=== PATIENT | female | born 1980 | race Caucasian/White ===

== ENCOUNTER 2019-03-11 17:45 | Inpatient (IN) ==
[2019-03-11 18:29] LABS: INR 0.94; PROTIME 13.4 Seconds (11.0-16.0)
[2019-03-11 18:30] LABS: BASO# 0.05 X1000 (0.0-0.2); BASO% 0.2 % (0.0-0.8); EOS# 0.02 X1000 (0.0-0.7); EOS% 0.1 % (0.0-10.0); HEMATOCRIT 40.9 % (37.0-47.0); HEMOGLOBIN 14.6 g/dL (12.0-16.0); IMM GRAN# 0.13 X1000 (0.0-0.04); IMM GRAN% 0.4 % (0.0-0.5); LYMPH# 1.02 X1000 (1.2-3.4); LYMPH% 3.4 % (20.5-51.1); MCH 30.8 PG (27-31); MCHC 35.7 g/dL (33-37); MCV 86.3 FL (81-99); MONO# 2.15 X1000 (0.11-0.59); MONO% 7.2 % (1.7-9.3); MPV 9.9 FL (7.4-10.4); NEUT# 26.59 X1000 (1.4-6.5); NEUT% 88.7 % (42.2-75.2); PLT 285 X1000 (130-400); PTT 29.6 Seconds (22.3-41.8); RBC 4.74 XMIL (4.2-5.4); RDW 12.6 % (11.5-14.5); WBC 29.96 X1000 (4.8-10.8)
[2019-03-11 18:40] LABS: AGAP 18; ALB/GLOB RATIO 1.5; ALBUMIN 4.2 g/dL (3.5-5.0); ALKALINE PHOSPHATASE 119 U/L (32-104); BUN 8 mg/dL (8-22); CALCIUM 9.3 mg/dL (8.8-10.2); CHLORIDE 102 mmol/L (98-107); CK PROFILE 37 U/L (24-173); COSMO 272; CREATININE 0.8 mg/dL (0.5-0.9); ESTIMATED GFR > 60; GLUCOSE 137 mg/dL (70-104); GOT 18 U/L (10-30); GPT 14 U/L (10-36); POTASSIUM 3.9 mmol/L (3.5-5.1); SODIUM 136 mmol/L (136-145); TCO2 16 mmol/L (25-35); TOTAL BILIRUBIN 0.39 mg/dL (0.20-1.00)
--- NOTE | 2019-03-11 18:51 | Diag Imaging Result Doc PS360 ---
EXAM: CHEST-1 VIEW HISTORY: POSSIBLE SEPSIS TECHNIQUE: Chest single view COMPARISON: 07/26/2013 FINDINGS: The lungs are well expanded. The heart is not enlarged. The vessels are not distended. There are no infiltrates. No effusion identified. IMPRESSION: No pneumonia Electronically signed by Pop Kinsey 03/11/2019 6:48 PM
[2019-03-11] MEDS ORDERED: ROCEPHIN 1 GM in NS 50 ML IV ONE (19:04)
[2019-03-11] MEDS ORDERED: NS 1,000 ML IV ONE (19:04)
[2019-03-11] MEDS ORDERED: MORPHINE IV ONE (19:12)
[2019-03-11] MEDS ORDERED: ZOFRAN IV ONE (19:12)
[2019-03-11] MEDS ORDERED: TYLENOL PO ONE (19:59)
[2019-03-11 20:17] LABS: URINE SOURCE CLEAN CATCH
[2019-03-11 20:38] LABS: BILIRUBIN URINE NEGATIVE (NEGATIVE); BLOOD URINE SMALL (NEGATIVE); COLOR YELLOW; GLUCOSE URINE NEGATIVE (NEGATIVE); KETONE URINE NEGATIVE (NEGATIVE); LEUKOCYTES URINE MODERATE (NEGATIVE); NITRITE URINE NEGATIVE (NEGATIVE); PH URINE 8.5; PROTEIN URINE 50 mg/dL (NEGATIVE); SP GRAVITY URINE 1.016; TURBIDITY URINE CLEAR (CLEAR); UROBILINOGEN URINE NORMAL (NORMAL)
[2019-03-11 20:39] LABS: UR EPITHELIAL CELLS <10 /HPF (<10); URINE BACTERIA NEGATIVE /HPF; URINE RBC 20-40 /HPF (<10); URINE WBC TNTC /HPF (<10)
[2019-03-11 20:45] LABS: URINE CASTS NONE SEEN; URINE CRYSTALS NONE SEEN; URINE SMALL ROUND CELLS RENAL PRESENT; URINE YEAST NONE SEEN
--- NOTE | 2019-03-11 21:10 | Diag Imaging Result Doc PS360 ---
EXAM: CT ABD/PELVIS W/IV CONT ONLY HISTORY: pyelonephritis, nephroliathiasis TECHNIQUE: Emergency CT of the abdomen and pelvis with intravenous contrast COMPARISON: 08/11/2018 FINDINGS: The gallbladder is distended. No calcified stones or adjacent inflammation. The common bile duct measures 8 mm. Normal pancreas. Likely mild fatty infiltration of the liver. Normal spleen and adrenal glands. Heterogeneous enhancement of the right kidney. No hydronephrosis. Normal aorta. Normal appendix. No abscess. There are scattered colonic diverticula. No bowel obstruction. Urinary bladder is moderately distended and is normal. Uterus has been removed. IMPRESSION: 1.Right-sided pyelonephritis 2.Distended gallbladder, but no stones or adjacent inflammation 3.Mild fatty infiltration of liver 4.Colonic diverticulosis 5.Hysterectomy This exam was performed using automated exposure control, adjustment of mA or kV according to patient size, and/or use of iterative reconstruction technique. Electronically signed by Pop Kinsey 03/11/2019 9:08 PM
--- NOTE | 2019-03-11 21:27 | PROVIDER DOCUMENTATION ---
This chart was entered by Tianna Harrison Scribe, acting as scribe for Cinthya Neely MD. HPI-Abdominal Pain/GI Problem - General Chief Complaint: Possible Sepsis-D Stated Complaint: BODYACHES Time Seen by Provider: 03/11/19 19:04 Source: patient Allergies/Adverse Reactions: Patient Allergies Allergy/AdvReac Type Severity Reaction Status Date / Time ketorolac [From Toradol] Allergy Unknown Verified 08/11/18 13:14 tramadol Allergy Unknown Verified 08/11/18 13:14 Home Medications: Home Medication List Medication Instructions Recorded Confirmed Last Taken Type NK [No Home Medications] 06/25/18 08/11/18 Unknown History - History of Present Illness-ABD Nature of Presenting Problems: 38 y/o female presents to ED with suprapubic pain, weakness, N/V, and dysuria onset 4 days ago and worsening. Pt is alert and oriented. Abdominal Pain Onset Location: reports: suprapubic Pain Radiation: reports: no radiation Quality of Pain: reports: aching Severity in ED: reports: moderate Onset/Duration: reports: 4 days ago Timing: reports: still present, getting worse Activities at Onset: reports: none Exposure to sick contacts?: No Modifying Factors: worse with: palpation Associated Symptoms: reports: nausea, vomiting, weakness, other (dysuria) Last BM: unsure Dark Stools Present?: reports: none noticed Rectal Bleeding: reports: none Rectal Pain: reports: none Similar Symptoms Previously?: No Recently seen or treated by another doctor?: No Review of Systems - Adult - REVIEW OF SYSTEMS - ADULT Constitutional: denies: chills, fever Eyes: reports: no symptoms reported Ears, Nose, Mouth & Throat: reports: no symptoms reported Cardiovascular: denies: chest pain, palpitations Respiratory: denies: cough, shortness of breath Gastrointestinal: reports: abdominal pain, nausea, vomiting. denies: diarrhea Genitourinary: reports: dysuria. denies: incontinence Musculoskeletal: denies: back pain, joint pain Integumentary: reports: no symptoms reported Neurological: reports: other (weakness). denies: dizziness/vertigo, seizure Psychiatric: reports: no symptoms reported Endocrine: reports: no symptoms reported Hematologic/Lymphatic: reports: no symptoms reported Allergic/Immunologic: reports: no symptoms reported All Other Systems: Reviewed and Negative Past History - Adult - PAST MEDICAL HISTORY-ADULT Review of Records: reports: Old Records Reviewed, Nursing Assessment Review, Medications Reviewed Major Childhood Illnesses: reports: denies history Cardiovascular: reports: denies history Respiratory: reports: denies history Gastrointestinal: reports: denies history Genitourinary: reports: denies history, kidney stones Musculoskeletal: reports: denies history Neurological: reports: denies history Psychiatric: reports: denies history Endocrine/Immune: reports: denies history - PRIOR SURGERIES/PROCEDURES Surgical/Procedure History: reports: reviewed, not pertinent, hysterectomy, orthopedic (extremity) (L arm, L foot) - IMMUNIZATION STATUS Childhood Immunizations: See Nurse Assessment Flu Vaccine: See Nurse Assessment - FAMILY HISTORY Family History: reviewed, not pertinent - SOCIAL HISTORY Smoking: greater than 1 pack/day Provider spent 3-5 mins advising pt. on dangers of tobacco.: Discussed manners to quit use, and f/u contacts for add'l counseling. Substance Use: none/never Alcohol Use Frequency: never Living Situation: family Physical Exam-General - PHYSICAL EXAM-ADULT Initial Vital Signs Reviewed: Yes - CONSTITUTIONAL General Appearance: appears well, alert, no apparent distress - EYES Eyes: PERRL/EOMI, pink conjunctivae - HEAD, EARS, NOSE, MOUTH & THROAT HENMT: normocephalic/atraumatic, moist mucous membranes, normal ENT inspection - NECK Neck: non-tender, full range of motion - RESPIRATORY Respiratory: chest non-tender, lungs clear, normal breath sounds - CARDIOVASCULAR Cardiovascular: normal peripheral pulses, regular rate, rhythm - GASTROINTESTINAL (ABDOMEN) Abdominal Exam: normal bowel sounds, soft, tenderness (diffuse; worse in epigastric region) - MUSCULOSKELETAL Back Exam: normal inspection, no vertebral tenderness, CVA tenderness (bilateral) Extremity: normal range of motion, non-tender, normal gait - SKIN Integumentary: normal color, warm/dry - NEUROLOGIC Neurologic: grossly normal - PSYCHIATRIC Psych/Mental Status: normal mood/affect, normal thought content, normal thought process Progress - PLAN OF CARE/RESULTS Progress/Plan/Lab Results: Vital Signs - 8 hr 03/11/19 17:51 03/11/19 18:24 03/11/19 18:25 Temperature 99.0 F Pulse Rate 147 H 116 H Respiratory Rate 22 44 H Blood Pressure 102/69 104/70 O2 Sat by Pulse Oximetry 97 96 95 03/11/19 18:30 03/11/19 18:33 03/11/19 18:40 Temperature Pulse Rate 120 H 120 H 119 H Respiratory Rate 30 H 28 H 21 Blood Pressure 116/68 O2 Sat by Pulse Oximetry 90 L 93 L 93 L 03/11/19 18:50 03/11/19 19:00 03/11/19 19:02 Temperature Pulse Rate 125 H 117 H 118 H Respiratory Rate 31 H 25 H 24 Blood Pressure 113/65 O2 Sat by Pulse Oximetry 95 93 L 94 L 03/11/19 19:10 03/11/19 19:50 03/11/19 19:51 Temperature Pulse Rate 130 H 131 H 130 H Respiratory Rate 22 18 30 H Blood Pressure 111/67 O2 Sat by Pulse Oximetry 95 95 95 03/11/19 20:00 03/11/19 20:02 Temperature Pulse Rate 118 H 113 H Respiratory Rate 27 H 24 Blood Pressure 109/63 O2 Sat by Pulse Oximetry 93 L 94 L Laboratory Results - last 24 hr 03/11/19 03/11/19 03/11/19 18:04 18:04 18:04 WBC 29.96 H RBC 4.74 Hgb 14.6 Hct 40.9 MCV 86.3 MCH 30.8 MCHC 35.7 RDW Std Deviation 12.6 Plt Count 285 MPV 9.9 Immature Gran % (Auto) 0.4 Neut % (Auto) 88.7 H Lymph % (Auto) 3.4 L Pine % (Auto) 7.2 Eos % (Auto) 0.1 Baso % (Auto) 0.2 Immature Gran # (Auto) 0.13 H Neut # (Auto) 26.59 H Lymph # (Auto) 1.02 L Pine # (Auto) 2.15 H Eos # (Auto) 0.02 Baso # (Auto) 0.05 PT 13.4 INR 0.94 PTT (Actin FS) 29.6 Sodium 136 Potassium 3.9 Chloride 102 Carbon Dioxide 16 L Anion Gap 18 BUN 8 Creatinine 0.8 Estimated GFR/1.73 m2 > 60 BUN/Creatinine Ratio 10 Glucose 137 H Calculated Osmolality 272 Calcium 9.3 Total Bilirubin 0.39 AST 18 ALT 14 Alkaline Phosphatase 119 H Creatine Kinase 37 Troponin T Total Protein 7.0 Albumin 4.2 Globulin 2.8 Albumin/Globulin Ratio 1.5 Plasma Lactate Urine Source Urine Color Urine Turbidity Urine pH Ur Specific [place] Urine Protein Ur Glucose (Stick) Ur Ketones (Stick) Urine Blood Urine Nitrite Urine Bilirubin Urobilinogen Dipstick Urine Leukocytes Urine WBC (Auto) Urine RBC (Auto) U Epithel Cells (Auto) Urine Bacteria (Auto) Urine Crystals Small Round Cells Urine Casts Urine Yeast-like Cells 03/11/19 03/11/19 03/11/19 18:04 18:04 19:50 WBC RBC Hgb Hct MCV MCH MCHC RDW Std Deviation Plt Count MPV Immature Gran % (Auto) Neut % (Auto) Lymph % (Auto) Pine % (Auto) Eos % (Auto) Baso % (Auto) Immature Gran # (Auto) Neut # (Auto) Lymph # (Auto) Pine # (Auto) Eos # (Auto) Baso # (Auto) PT INR PTT (Actin FS) Sodium Potassium Chloride Carbon Dioxide Anion Gap BUN Creatinine Estimated GFR/1.73 m2 BUN/Creatinine Ratio Glucose Calculated Osmolality Calcium Total Bilirubin AST ALT Alkaline Phosphatase Creatine Kinase Troponin T < 0.010 Total Protein Albumin Globulin Albumin/Globulin Ratio Plasma Lactate 1.8 Urine Source CLEAN CATCH Urine Color YELLOW Urine Turbidity CLEAR Urine pH 8.5 Ur Specific [place] 1.016 Urine Protein 50 A Ur Glucose (Stick) NEGATIVE Ur Ketones (Stick) NEGATIVE Urine Blood SMALL A Urine Nitrite NEGATIVE Urine Bilirubin NEGATIVE Urobilinogen Dipstick NORMAL Urine Leukocytes MODERATE A Urine WBC (Auto) TNTC A Urine RBC (Auto) 20-40 A U Epithel Cells (Auto) <10 Urine Bacteria (Auto) NEGATIVE Urine Crystals NONE SEEN Small Round Cells RENAL PRESENT Urine Casts NONE SEEN Urine Yeast-like Cells NONE SEEN Orders Category Date Time Status Cardiac Monitoring DIRECTED Care 03/11/19 18:06 Active IV Insertion ORDERED Care 03/11/19 18:06 Completed Notify MD of + Sepsis Screen NOW Care 03/11/19 18:06 Active Notify Physician As Ordered Care 03/11/19 18:06 Active CHEST-1 VIEW [RAD] Stat Exams 03/11/19 18:[address] ABD/PELVIS W/IV CONT ONLY [CT] Stat Exams 03/11/19 20:34 Taken BLOOD CULTURE [BLDCUL] Stat Lab 03/11/19 18:04 Results CBC WITH DIFF [HEME] Stat Lab 03/11/19 18:04 Completed CK PROFILE [SP CHEM] Stat Lab 03/11/19 18:04 Completed COMPREHENSIVE METABOLIC PANEL [CHEM] Stat Lab 03/11/19 18:04 Completed LACTATE, PLASMA [CHEM] Lab 03/11/19 18:04 Completed LACTATE, PLASMA [CHEM] Lab 03/11/19 18:55 Ordered LACTATE, PLASMA [CHEM] Lab 03/12/19 00:15 Uncollected PROTIME WITH INR [COAG] Stat Lab 03/11/19 18:04 Completed PTT [COAG] Stat Lab 03/11/19 18:04 Completed TROPONIN T Stat Lab 03/11/19 18:04 Completed URINALYSIS W/POSS RFLX CULT [URINALYSIS] Stat Lab 03/11/19 19:50 Completed URINE MANUAL MICROSCOPIC [URINALYSIS] Stat Lab 03/11/19 19:50 Completed 0.9% Sodium Chloride Inj [Ns] 1,000 ml Med 03/11/19 19:04 Discontinued IV 999 mls/hr Acetaminophen [Tylenol] Med 03/11/19 19:59 Discontinued 500 mg PO NOW ONE CefTRIAXONE [Rocephin] 1 gm Med 03/11/19 19:04 Discontinued 0.9% Sodium Chloride Inj [Ns] 50 ml IV NOW Morphine Med 03/11/19 19:12 Discontinued 4 mg IV NOW ONE Ondansetron [Zofran] Med 03/11/19 19:12 Discontinued 4 mg IV NOW ONE Oxygen Device Stat Oth 03/11/19 18:06 Active Result Diagrams: 03/11/19 18:04 03/11/19 18:04 - EKG 1 Time of EKG reading by physician:: 18:18 EKG Read and Signed by:: Cinthya Neely EKG Interpretation (*Must complete 3 of following elements*): Abnormal Rate: 118 Rhythm: Sinus tach [employer]: normal QRS: other (possible L atrial enlargement) NC Interval: normal ST Wave: non-specific ST changes - XRAY 1 XRAY Study: Chest Impression: Normal (FINDINGS: The lungs are well expanded. The heart is not enlarged. The vessels are not distended. There are no infiltrates. No effusion identified. IMPRESSION: No pneumonia Electronically signed by Pop Kinsey 03/11/2019 6:48 PM) - CT/MRI 1 CT Study: Abdomen, Pelvis Impression: Abnormal (FINDINGS: The gallbladder is distended. No calcified stones or adjacent inflammation. The common bile duct measures 8 mm. Normal pancreas. Likely mild fatty infiltration of the liver. Normal spleen and adrenal glands. Heterogeneous enhancement of the right kidney. No hydronephrosis. Normal aorta. Normal appendix. No abscess. There are scattered colonic diverticula. No bowel obstruction. Urinary bladder is moderately distended and is normal. Uterus has been removed. IMPRESSION: 1.Right-sided pyelonephritis 2.Distended gallbladder, but no stones or adjacent inflammation 3.Mild fatty infiltration of liver 4.Colonic diverticulosis 5.Hysterectomy This exam was p erformed using automated exposure control, adjustment of mA or kV according to patient size, and/or use of iterative reconstruction technique. Electronically signed by Pop Kinsey 03/11/2019 9:08 PM) - CONSULTS/PCP/HOSPITALIST Notification #1 *Consult/PCP/Hospitalist*: Dr. Olmedo Time Discussed: 21:26 (sepsis, right pyelo) Consult Disposition: Admit Departure - Departure Date of Disposition Decision: 03/11/19 Time of Disposition Decision: 21:27 DIAGNOSIS: Sepsis, Pyelonephritis of right kidney Disposition: ADMITTED INPATIENT 09 Certified Medical Emergency: Emergent Condition: Stable Referrals and Follow-Ups: None,PCP [Primary Care Provider] - Discharge Education: Steps to Quit Smoking, [id number] - Critical Care Note This patient required my direct & personal management of CC.: No Attestation - Physician/ VIVIANA Attestation Patient care was provided by Advanced Practice Provider:: No The physician spent face to face time with patient:: Yes Advanced Practice Provider documentation review:: Supervising physician onsite and consulted in the evaluation and care of this patient. The physician did have a face to face encounter with the patient. This chart was documented by the indicated scribe, (Tianna Harrison Scribe) and accurately reflects the services I performed and decisions made by me, Cinthay Neely MD, as attested by the provider's signature.
[2019-03-11] MEDS ORDERED: NS 900 ML IV ONE (22:01)
[2019-03-11] MEDS: MAXIPIME 1 GM in NS 50 ML IV SCH (22:02)
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
[2019-03-12] MEDS: NS 1,000 ML IV SCH ×2 (02:36→12:34)
[2019-03-12] MEDS: TYLENOL PO PRN ×3 (02:36→19:33)
[2019-03-12 06:45] LABS: BASO# 0.03 X1000 (0.0-0.2); BASO% 0.1 % (0.0-0.8); HEMOGLOBIN 12.9 g/dL (12.0-16.0); IMM GRAN% 0.4 % (0.0-0.5); LYMPH# 1.24 X1000 (1.2-3.4); LYMPH% 4.4 % (20.5-51.1); MCH 30.2 PG (27-31); MCHC 33.9 g/dL (33-37); MONO# 2.64 X1000 (0.11-0.59); MONO% 9.4 % (1.7-9.3); MPV 10.3 FL (7.4-10.4); NEUT% 85.7 % (42.2-75.2); PLT 241 X1000 (130-400); RBC 4.27 XMIL (4.2-5.4); RDW 12.9 % (11.5-14.5); WBC 28.21 X1000 (4.8-10.8)
[2019-03-12 07:02] LABS: LYMPHS 5 % (21-51); MONO 6 % (1-9); SEGS 89 % (42-75)
[2019-03-12 07:16] LABS: AGAP 12; BUN 8 mg/dL (8-22); CALCIUM 8.4 mg/dL (8.8-10.2); CHLORIDE 107 mmol/L (98-107); COSMO 275; CREATININE 0.8 mg/dL (0.5-0.9); ESTIMATED GFR > 60; GLUCOSE 113 mg/dL (70-104); POTASSIUM 3.6 mmol/L (3.5-5.1); SODIUM 138 mmol/L (136-145); TCO2 19 mmol/L (25-35)
[2019-03-12] MEDS: NICODERM PATCH TD SCH ×2 (07:40→09:16)
[2019-03-12] MEDS: MAXIPIME 1 GM in NS 50 ML IV SCH ×2 (09:16→20:44)
[2019-03-12] MEDS: MORPHINE IV PRN ×3 (12:29→19:30)
--- NOTE | 2019-03-12 13:59 | PROGRESS NOTE ---
DATE: 03/12/2019 Today Ms. Shetty refers to continue hurting especially to her right flank. Her vitals, blood pressure is 94/54, pulse of 97, respiration is 18, temperature is 100.2 degrees. General: Ms. Shetty is a 38-year-old female she is in bed no distress. Mucosa is pink and moist. Anicteric. Acyanotic. Neck: supple. Chest: Good air entry bilateral. There was no crepitations ,no rhonchi. Cardiovascular: Regular rate and rhythm. Abdomen: Is soft. Bowel sounds present. There is no hepatosplenomegaly but there is a positive right CVA tenderness. Extremities: No pedal edema. VACUUM CLEANER REPAIRER: Patient is awake, alert, and oriented. LABORATORY DATA: WBC is up to 28.21, there is 89% of neutrophils. Chemistry is also reviewed. Bicarb is up to 19, the gap is closed. Glucose is normal. Blood culture and urine culture still pending. Review of CT scan of the abdomen and pelvis did show a right side pyelonephritis, distended gallbladder but no stones or inflammation. There is mild fatty infiltration of the liver and colonic diverticulosis. ASSESSMENT: 1. Septic shock on presentation. Patient improved with fluid resuscitation. No need for vasopressors. We think this is secondary to the pyelonephritis. 2. Right side pyelonephritis. Patient is currently on intravenous antibiotics. Blood cultures and urine cultures have been done. We are pending the report. 3. History of nephrolithiasis. Patient did have a left side kidney stone removed about 4 months ago. Stent was placed. The stent has subsequently been removed. The current CT scan does not show any stones. 4. Tobacco abuse, patient has been counseled. 5. Distended gallbladder most likely as a response to the ongoing infections. The CT scan did not mention any inflammation around the gallbladder or any stones. So in general I think Ms. Shetty is gradually getting better. We are going to continue with the current IV antibiotics as well as symptomatic management and pending the culture results. cc: Davion Knight MD [facility]
[2019-03-12] MEDS ORDERED: TYLENOL PO ONE (23:01)
[2019-03-13] MEDS: MORPHINE IV PRN ×4 (00:18→12:57)
[2019-03-13] MEDS: NS 1,000 ML IV SCH ×5 (00:23→18:16)
[2019-03-13] MEDS: TYLENOL PO PRN ×2 (05:32→12:57)
[2019-03-13 07:08] LABS: BASO# 0.03 X1000 (0.0-0.2); BASO% 0.1 % (0.0-0.8); EOS# 0.18 X1000 (0.0-0.7); EOS% 0.8 % (0.0-10.0); HEMATOCRIT 34.8 % (37.0-47.0); HEMOGLOBIN 11.7 g/dL (12.0-16.0); IMM GRAN# 0.05 X1000 (0.0-0.04); IMM GRAN% 0.2 % (0.0-0.5); LYMPH# 1.96 X1000 (1.2-3.4); LYMPH% 9.2 % (20.5-51.1); MCHC 33.6 g/dL (33-37); MCV 89.2 FL (81-99); MONO# 1.76 X1000 (0.11-0.59); MONO% 8.2 % (1.7-9.3); MPV 10.1 FL (7.4-10.4); NEUT# 17.36 X1000 (1.4-6.5); NEUT% 81.5 % (42.2-75.2); PLT 208 X1000 (130-400); RDW 12.8 % (11.5-14.5); WBC 21.34 X1000 (4.8-10.8)
[2019-03-13 07:13] LABS: ANISOCYTOSIS 1+; LYMPHS 19 % (21-51); MONO 10 % (1-9); SEGS 71 % (42-75)
[2019-03-13] MEDS: NICODERM PATCH TD SCH (08:11)
[2019-03-13] MEDS: ZOFRAN IV PRN ×2 (08:16→20:25)
[2019-03-13] MEDS: MAXIPIME 1 GM in NS 50 ML IV SCH ×3 (09:38→23:39)
[2019-03-13] MEDS ORDERED: LACTULOSE PO ONE (09:58)
[2019-03-13] MEDS: MIRALAX PO SCH (10:35)
[2019-03-13] MEDS ORDERED: RELISTOR SUBQ ONE (16:05)
[2019-03-13] MEDS ORDERED: BENTYL PO PRN (16:08)
[2019-03-13] MEDS: DILAUDID IV PRN ×3 (16:36→23:08)
--- NOTE | 2019-03-13 17:29 | PROGRESS NOTE ---
DATE: 03/13/2019 SUBJECTIVE: She is still complaining of pain, but mostly it is dyspepsia and abdominal discomfort. I do not think she has had a bowel movement since Wednesday, so it may just be related to that. Her belly is soft, really nontender. She has bowel sounds. I think this just may be narcotic-induced and pyelonephritis, versus any major obstruction or anything like that because she is tolerating p.o. OBJECTIVE: Vital Signs: 116/76, heart rate 73, respiratory rate 15, temperature 98.4 degrees, T- max 102.8 degrees. Cardiovascular: Regular rate and rhythm. Pulmonary: Bilateral breath sounds, clear to auscultation Abdomen: Soft, nontender, nondistended. Bowel sounds are positive. Extremities: No clubbing or cyanosis. Lymphatics: No peripheral edema. Neurological: Nonfocal. LABORATORY DATA: White count is down to 21, hemoglobin and hematocrit are 11 and 34, platelets 208,000. Microscopy shows gram-negative rods in her urine culture. PROBLEM LIST: 1. Pyelonephritis. We will continue antibiotics. She is on cefepime pending urine culture. Blood cultures are negative. 2. Septic shock, which has since resolved. Continue gentle hydration. 3. Abdominal exam consistent with some ileus. I am going to add some Relistor. She is on a bowel regimen. Anticipate discharge hopefully in the next 1 to 2 days if her white count improves. Additionally, she needs to start ambulating, as she does have a distended gallbladder, which may need to be followed up with. We will check hepatic function tomorrow. We may even consider right upper quadrant, although I think her liver enzymes were okay. We will also pursue anemia workup. cc: James So MD
[2019-03-13] MEDS: NORCO-7.5 PO PRN (18:56)
[2019-03-14] MEDS: NORCO-7.5 PO PRN ×4 (01:11→20:09)
[2019-03-14] MEDS: ZOFRAN IV PRN ×4 (01:11→22:17)
[2019-03-14] MEDS: DILAUDID IV PRN ×6 (03:05→22:17)
[2019-03-14] MEDS: NS 1,000 ML IV SCH ×4 (03:10→22:11)
[2019-03-14 07:05] LABS: BASO# 0.02 X1000 (0.0-0.2); BASO% 0.2 % (0.0-0.8); EOS# 0.25 X1000 (0.0-0.7); EOS% 2.1 % (0.0-10.0); HEMATOCRIT 33.9 % (37.0-47.0); HEMOGLOBIN 11.6 g/dL (12.0-16.0); IMM GRAN# 0.02 X1000 (0.0-0.04); IMM GRAN% 0.2 % (0.0-0.5); LYMPH# 1.76 X1000 (1.2-3.4); LYMPH% 15.1 % (20.5-51.1); MCH 29.9 PG (27-31); MCHC 34.2 g/dL (33-37); MCV 87.4 FL (81-99); MONO% 8.6 % (1.7-9.3); MPV 10.2 FL (7.4-10.4); NEUT# 8.58 X1000 (1.4-6.5); NEUT% 73.8 % (42.2-75.2); PLT 224 X1000 (130-400); RBC 3.88 XMIL (4.2-5.4); RDW 12.4 % (11.5-14.5); WBC 11.63 X1000 (4.8-10.8)
[2019-03-14 07:53] LABS: AGAP 13; ALB/GLOB RATIO 1.3; ALBUMIN 3.3 g/dL (3.5-5.0); ALKALINE PHOSPHATASE 101 U/L (32-104); BUN 3 mg/dL (8-22); CHLORIDE 104 mmol/L (98-107); COSMO 269; CREATININE 0.5 mg/dL (0.5-0.9); DIRECT BILIRUBIN < 0.10 mg/dL (0.00-0.20); ESTIMATED GFR > 60; GLUCOSE 103 mg/dL (70-104); GOT 13 U/L (10-30); GPT 11 U/L (10-36); IRON SATURATION 8 %; POTASSIUM 3.5 mmol/L (3.5-5.1); SODIUM 136 mmol/L (136-145); TCO2 19 mmol/L (25-35); TIBC 209 ug/dL; TOTAL BILIRUBIN 0.35 mg/dL (0.20-1.00); TOTAL IRON 16 ug/dL (49-151); TOTAL PROTEIN 5.8 g/dL (6.3-8.3); UNBOUND IRON 193 ug/dL (112-346)
[2019-03-14 08:06] LABS: FERRITIN 157 ng/mL (13-150)
--- NOTE | 2019-03-14 08:39 | EKG Report ---
Test Performed on : 03/11/2019 6:18:35 PM Test Reason : ED. NO EKG ORDER FOR MUSE Blood Pressure : / mmHG Vent. Rate : 118 BPM Atrial Rate : 118 BPM P-R Int : 128 ms QRS Dur : 072 ms QT Int : 302 ms P-R-T Axes : 070 062 057 degrees QTc Int : 423 ms Sinus tachycardia. Possible Left atrial enlargement Nonspecific ST abnormality Abnormal ECG No previous ECGs available Unconfirmed Result
[2019-03-14] MEDS: MAXIPIME 1 GM in NS 50 ML IV SCH (10:37)
[2019-03-14] MEDS: MIRALAX PO SCH (10:38)
[2019-03-14] MEDS: NICODERM PATCH TD SCH (10:38)
[2019-03-14] MEDS: LEVAQUIN PO SCH (15:28)
--- NOTE | 2019-03-14 15:41 | PROGRESS NOTE ---
DATE: 03/14/2019 SUBJECTIVE: This morning, Ms. Shetty refers to be hurting pretty badly on the right side. However, she was up and helping the nurse assistant quality manager to spread her bed. OBJECTIVE: Vital Signs: Blood pressure is 133/56, pulse of 66, respirations 18, temperature 98.6. General: Ms. Shetty is a 38-year-old female. She was in the bed at the time of the examination. HEENT: Mucosa is pink and moist. Anicteric. Acyanotic. Neck: Supple. Chest: Clear to auscultation. Cardiovascular: Regular rate and rhythm. Abdomen: Soft. Some tenderness in the right CVA. Bowel sounds are present. CHIEF LOCK OPERATOR: Patient is awake, alert and oriented, and follows commands. LABORATORY DATA: WBC is down to 11.63, hemoglobin is 11.6, platelet count of 224,000. Chemistry is also reviewed, unremarkable. Folate is remarkably low at 8.3. Iron is also remarkably low. ASSESSMENT: 1. Septic shock on presentation. This is improved. The patient did not need any pressors. 2. Right side pyelonephritis. So far, blood cultures have been negative. The urine culture shows an E coli which is sensitive to the current antibiotic. We are going to switch it to oral levofloxacin in anticipation of discharge. 3. History of nephrolithiasis. 4. Tobacco abuse. Patient has been counseled. 5. Distended gallbladder on the CT scan. We are also going to do a limited ultrasound of the right upper quadrant to rule out any stone that could also been causing some of this pain - that is why the patient is on adequate antibiotics for the renal pathology. cc: Davion Knight MD
[2019-03-14] MEDS: TYLENOL PO PRN (18:40)
[2019-03-14] MEDS: ABREVA CREAM TOP SCH ×2 (18:40→21:09)
[2019-03-14] MEDS: VALTREX PO SCH (21:09)
[2019-03-15] MEDS: DILAUDID IV PRN ×4 (01:38→12:46)
[2019-03-15] MEDS: NORCO-7.5 PO PRN ×2 (03:19→11:25)
[2019-03-15] MEDS: ZOFRAN IV PRN ×2 (06:15→12:46)
[2019-03-15] MEDS: NS 1,000 ML IV SCH (06:54)
[2019-03-15 07:21] LABS: BASO# 0.03 X1000 (0.0-0.2); BASO% 0.3 % (0.0-0.8); HEMATOCRIT 33.4 % (37.0-47.0); HEMOGLOBIN 11.5 g/dL (12.0-16.0); IMM GRAN# 0.02 X1000 (0.0-0.04); IMM GRAN% 0.2 % (0.0-0.5); LYMPH# 1.89 X1000 (1.2-3.4); LYMPH% 19.1 % (20.5-51.1); MCH 29.6 PG (27-31); MCHC 34.4 g/dL (33-37); MCV 86.1 FL (81-99); MONO# 1.34 X1000 (0.11-0.59); MONO% 13.5 % (1.7-9.3); MPV 10.4 FL (7.4-10.4); NEUT# 6.43 X1000 (1.4-6.5); NEUT% 64.9 % (42.2-75.2); PLT 292 X1000 (130-400); RBC 3.88 XMIL (4.2-5.4); RDW 12.3 % (11.5-14.5); WBC 9.91 X1000 (4.8-10.8)
[2019-03-15 07:38] VITALS: BP 104/62
[2019-03-15] MEDS: NICODERM PATCH TD SCH (09:29)
[2019-03-15] MEDS: ABREVA CREAM TOP SCH ×2 (09:29→12:49)
[2019-03-15] MEDS: VALTREX PO SCH (09:29)
[2019-03-15] MEDS: LEVAQUIN PO SCH (09:29)
[2019-03-15] MEDS: MIRALAX PO SCH (09:29)
[2019-03-15] MEDS: TYLENOL PO PRN (09:29)
[2019-03-15 09:46] LABS: AGAP 13; ALBUMIN 3.4 g/dL (3.5-5.0); BUN 3 mg/dL (8-22); CALCIUM 8.7 mg/dL (8.8-10.2); CHLORIDE 106 mmol/L (98-107); COSMO 276; CREATININE 0.5 mg/dL (0.5-0.9); ESTIMATED GFR > 60; GLUCOSE 104 mg/dL (70-104); PHOSPHORUS 4.2 mg/dL (2.7-4.5); SODIUM 140 mmol/L (136-145); TCO2 21 mmol/L (25-35)
--- NOTE | 2019-03-15 10:26 | Diag Imaging Result Doc PS360 ---
EXAM: US GB < RUQ (LIMITED) HISTORY: distended gallbladder. Right side abd pain TECHNIQUE: Right upper quadrant ultrasound COMPARISON: CT from 03/11/2019 FINDINGS: No abdominal aortic aneurysm. No focal hepatic abnormality. Normal gallbladder. No stones. The wall is not thickened. The common bile duct measures 8 mm. There is a small right renal cyst. No hydronephrosis. No ascites. IMPRESSION: Normal right upper quadrant ultrasound Electronically signed by Pop Kinsey 03/15/2019 10:24 AM
--- NOTE | 2019-03-15 15:45 | DISCHARGE SUMMARY ---
ADMISSION DATE: 03/11/2019 DISCHARGE DATE: 03/15/2019 ADMISSION DIAGNOSES: 1. Right-sided pyelonephritis. 2. Fluid volume depletion. 3. Nicotine dependence. 4. Nausea. 5. Leukocytosis. DISCHARGE DIAGNOSES: 1. Septic shock on presentation. 2. Right-sided pyelonephritis. 3. History of nephrolithiasis. 4. Nicotine dependence. 5. Distended gallbladder on CT. 6. Herpes Labialis DIAGNOSTIC PROCEDURES AND FINDINGS: Chest x-ray 03/11/2019: No pneumonia. Abdomen and pelvis CT 03/11/2019: Right-sided pyelonephritis, distended gallbladder, no stones or adjacent inflammation, mild fatty infiltration of the liver, colonic diverticulosis, hysterectomy. Abdominal ultrasound 03/11/2019: Normal right upper quadrant ultrasound. EKG 03/11/2019: Sinus tachycardia. CONSULTATIONS: None. HOSPITAL COURSE: Ms. Shetty is a 38-year-old female with no medical history other than UTI around a month ago prior to admission. She came in with suprapubic pain, dysuria, weakness, nausea, fever, chills, temperature maximum of 103 subjectively at home. When she came to the ER she had a UTI and CT confirmed pyelonephritis on the right. She was admitted for dehydration and pyelonephritis. Blood cultures were obtained and were ultimately found to be negative. Urine culture did show E coli ESBL negative. The culture was susceptible to Levaquin, which is what she was placed on. Due to the possibility of cholecystitis an ultrasound was done, which was found to be negative. She improved greatly with fluids, antibiotics, and antiemetics. She is now stable for discharge home. We did children counselor her significantly on nicotine dependence. DISCHARGE MEDICATIONS: Abreva cream 2 grams topically five times a day to the affected area, Bentyl 10 mg p.o. t.i.d., Levaquin 500 mg p.o. daily for 10 days, MiraLAX 17 grams, [place] 7.5 one every six hours as needed for pain, 20 pills no refills, Valtrex 500 mg p.o. b.i.d. for five days, no refills. DISCHARGE VITALS: Blood pressure 104/62, heart rate 63, respiratory rate 20, O2 saturation 100% on room air, temperature 98.8. DISCHARGE DIET: Regular. DISCHARGE ACTIVITY: Resume activity as tolerated. DISPOSITION AND OTHER DISCHARGE INSTRUCTIONS: The patient is discharged home to self-care. She is to continue medications as directed. She is to follow up with her PCP and if she does not have a PCP we have encouraged her to follow up with PCP of her choosing. She is to return to the ER or call 911 for worsening complaints or concerns. All questions were answered. DISCHARGE TIME: Greater than 35 minutes. Dictated by RADHA Chauhan for Davion Knight MD cc: RADHA Chauhan MD I have seen and examined Ms Shetty today. No family member present. She feels better and no new complains. Ms Shetty is clinically stable foe discharge today. I have reconciled her home medications. All discharge instructions and follow up recommendations have been discussed with her and she voiced understanding. I agree with the above discharge summary. RKQ KALPESH
== END 2019-03-15 15:38 | disposition home or self-care (01) | DRG 871 ==
LOC: ED 17:45 → SUATTDRO 22:15 → 4N 22:15
PROVIDERS: ATTEND Internal Medicine
CPT/HCPCS: 71010; 71045; 74177; 76705; 80048; 80053; 80069; 80076; 81001; 82550; 82607; 82728; 82746; 83540; 83550; 83605; 84484; 85025; 85610; 85730; 87040; 87077; 87088; 87186; 93005; 96365; 96367; 96375; 99285; A9270; J0692; J0696; J1170; J2270; J2405; J7030; Q9967

== ENCOUNTER 2019-09-11 08:56 | Inpatient (IN) ==
[2019-09-11] MEDS ORDERED: MORPHINE IV ONE ×2 (09:18→12:44)
--- NOTE | 2019-09-11 09:24 | PROVIDER DOCUMENTATION ---
HPI-Female /OB/Breast - General Chief Complaint: SEPSIS ALERT - D Stated Complaint: FEVER, COLD STOMACH BACK PAIN FEMALE Time Seen by Provider: 09/11/19 09:10 Source: reports: patient Allergies/Adverse Reactions: Patient Allergies Allergy/AdvReac Type Severity Reaction Status Date / Time ketorolac [From Toradol] Allergy Unknown Verified 09/11/19 09:34 tramadol Allergy Unknown Verified 09/11/19 09:34 Home Medications: Home Medication List Medication Instructions Recorded Confirmed Last Taken Type Dicyclomine [Bentyl] 10 mg PO TID PRN PRN #20 cap 03/15/19 Unknown Rx Docosanol Cream [Abreva Cream] 2 gm TOP 5XDAY #1 tube 03/15/19 Unknown Rx Hydrocodone/APAP 7.5 mg/325 mg 1 ea PO Q6H PRN PRN #20 tab 03/15/19 Unknown Rx [[place]-7.5] Levofloxacin [Levaquin] 500 mg PO DAILY #10 tab 03/15/19 Unknown Rx Polyethylene Glycol 3350 [Miralax] 17 gm PO DAILY #10 powder, packet 03/15/19 Unknown Rx Valacyclovir [Valtrex] 500 mg PO BID #10 tab 03/15/19 Unknown Rx - History of Present Illness-Female /OB Nature of Presenting Problem: Patient is a 39yo F who presents with complaints of flank pain, abdominal pain, nausea/vomiting, and decreased urine output x5 days. Reports pain worsened last night and she spiked a fever of 104. 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 Reports she has not voided today and has not had a BM in 1 week. States she was septic from Pyelonephritis in January this year and reports her symptoms today feel similar. States last episode of emesis was just [employer] ADDED ASSESSOR and was clear. Denies diarrhea, syncope, CP, cough, or SOB. Moist mucus membranes upon examination. Does patient report she is ?: No Location of complaint: reports: RLQ, LLQ, generalized flank Radiation: reports: none Quality of Pain: reports: pressure, throbbing Severity in ED: reports: moderate Onset/Duration: reports: 4 days ago Timing: reports: still present, getting worse Context/Activities at Onset: reports: none Vaginal Symptoms: reports: no symptoms Vaginal Bleeding Amount: None Urinary Symptoms: reports: retention, urgency, low back pain Modifying Factors: improves with: nothing Associated Symptoms: reports: back/neck pain, fever/chills, loss of appetite, malaise, nausea, vomiting. denies: chest pain, diarrhea, syncope Similar Symptoms Previously?: Yes (Septic from Pyelonephritis) Recently seen or treated by another doctor?: No - LMP/ History Menstrual Status: s/p hysterectomy Review of Systems - Adult - REVIEW OF SYSTEMS - ADULT Constitutional: reports: see HPI, chills, fever Eyes: reports: no symptoms reported Ears, Nose, Mouth & Throat: reports: no symptoms reported. denies: sinus problem, throat pain Cardiovascular: reports: no symptoms reported. denies: chest pain, palpitations Respiratory: reports: no symptoms reported. denies: cough, shortness of breath, wheezing Gastrointestinal: reports: see HPI, abdominal pain, nausea, poor appetite, vomit ing. denies: diarrhea Genitourinary: reports: see HPI, flank pain, urinary retention, urgency Musculoskeletal: reports: see HPI, back pain Integumentary: reports: no symptoms reported Neurological: reports: no symptoms reported. denies: dizziness/vertigo, heada wendy/migraines, syncope Psychiatric: reports: no symptoms reported Endocrine: reports: no symptoms reported Past History - Adult - PAST MEDICAL HISTORY-ADULT Review of Records: reports: Old Records Reviewed, Nursing Assessment Review, Medications Reviewed Major Childhood Illnesses: reports: denies history Cardiovascular: reports: denies history Respiratory: reports: denies history Gastrointestinal: reports: denies history Genitourinary: reports: kidney stones, other (Pyelo) Musculoskeletal: reports: denies history Neurological: reports: denies history Psychiatric: reports: denies history Endocrine/Immune: reports: denies history - PRIOR SURGERIES/PROCEDURES Surgical/Procedure History: reports: reviewed, not pertinent - IMMUNIZATION STATUS Childhood Immunizations: See Nurse Assessment Flu Vaccine: See Nurse Assessment - FAMILY HISTORY Family History: reviewed, not pertinent - SOCIAL HISTORY Smoking: cigarettes Provider spent 3-5 mins advising pt. on dangers of tobacco.: Discussed manners to quit use, and f/u contacts for add'l counseling. Physical Exam-General - PHYSICAL EXAM-ADULT Initial Vital Signs Reviewed: Yes - CONSTITUTIONAL General Appearance: alert, moderate distress. negative: lethargic, slow to respond, obtunded - EYES Eyes: PERRL/EOMI, pink conjunctivae. negative: EOM palsy, scleral icterus - HEAD, EARS, NOSE, MOUTH & THROAT HENMT: normocephalic/atraumatic, moist mucous membranes. negative: angioedema - NECK Neck: non-tender, full range of motion, supple, normal inspection - RESPIRATORY Respiratory: chest non-tender, lungs clear, normal breath sounds, no pleuratic chest pain, no respiratory distress, no accessory muscle use. negative: crackles, rales, rhonchi, stridor, wheezing, retractions, splinting - CARDIOVASCULAR Cardiovascular: tachycardia (115) - GASTROINTESTINAL (ABDOMEN) Abdominal Exam: soft, abnormal bowel sounds (hyperactive all quadrants), tenderness (bilateral lower quadrants TTP). negative: guarding, rigid, rebound - MUSCULOSKELETAL Back Exam: normal inspection, no vertebral tenderness, CVA tenderness (L) Extremity: normal range of motion, non-tender, normal gait, normal inspection - SKIN Integumentary: normal color, normal turgor, warm/dry. negative: cyanosis, jaundice, pallor - NEUROLOGIC Neurologic: grossly normal. negative: abnormal gait, aphasia, EOM palsy - PSYCHIATRIC Psych/Mental Status: normal mood/affect, normal thought content, normal thought process, oriented x 3 Progress - PLAN OF CARE/RESULTS Progress/Plan/Lab Results: Vital Signs - 8 hr 09/11/19 08:59 09/11/19 09:13 09/11/19 09:15 Temperature 98.1 F Pulse Rate 115 H 106 H 115 H Pulse Rate [Sitting] Pulse Rate [Standing] Pulse Rate [Supine] Respiratory Rate 26 H 12 19 Blood Pressure 115/78 133/94 Blood Pressure [Sitting] Blood Pressure [Standing] Blood Pressure [Supine] O2 Sat by Pulse Oximetry 99 09/11/19 09:26 09/11/19 09:27 09/11/19 09:29 Temperature Pulse Rate 97 H 119 H Pulse Rate [Sitting] 114 H Pulse Rate [Standing] 121 H Pulse Rate [Supine] 102 H Respiratory Rate 32 H 24 Blood Pressure 114/81 113/85 Blood Pressure [Sitting] 113/85 Blood Pressure [Standing] 118/87 Blood Pressure [Supine] 114/81 O2 Sat by Pulse Oximetry 99 98 09/11/19 09:30 09/11/19 09:32 09/11/19 09:45 Temperature Pulse Rate 103 H 103 H 94 H Pulse Rate [Sitting] Pulse Rate [Standing] Pulse Rate [Supine] Respiratory Rate 22 25 H 19 Blood Pressure 118/87 Blood Pressure [Sitting] Blood Pressure [Standing] Blood Pressure [Supine] O2 Sat by Pulse Oximetry 97 97 97 09/11/19 10:00 09/11/19 12:48 09/11/19 12:49 Temperature Pulse Rate 90 83 83 Pulse Rate [Sitting] Pulse Rate [Standing] Pulse Rate [Supine] Respiratory Rate 22 21 Blood Pressure 116/70 Blood Pressure [Sitting] Blood Pressure [Standing] Blood Pressure [Supine] O2 Sat by Pulse Oximetry 96 96 95 09/11/19 13:00 09/11/19 13:01 09/11/19 13:43 Temperature 103.1 F H Pulse Rate 83 83 Pulse Rate [Sitting] Pulse Rate [Standing] Pulse Rate [Supine] Respiratory Rate 24 25 H Blood Pressure 118/68 Blood Pressure [Sitting] Blood Pressure [Standing] Blood Pressure [Supine] O2 Sat by Pulse Oximetry 95 94 L Laboratory Results - last 24 hr 09/11/19 09/11/19 09/11/19 09:20 09:20 09:20 WBC 18.02 H RBC 4.87 Hgb 14.4 Hct 43.9 MCV 90.1 MCH 29.6 MCHC 32.8 L RDW Std Deviation 13.9 Plt Count 417 H MPV 9.7 Immature Gran % (Auto) 0.3 Neut % (Auto) 79.6 H Lymph % (Auto) 9.2 L [place] % (Auto) 10.3 H Eos % (Auto) 0.3 Baso % (Auto) 0.3 Immature Gran # (Auto) 0.05 H Neut # (Auto) 14.33 H Lymph # (Auto) 1.66 [place] # (Auto) 1.86 H Eos # (Auto) 0.06 Baso # (Auto) 0.06 PT 12.8 INR 0.96 PTT (Actin FS) 31.5 Sodium 140 Potassium 4.3 Chloride 100 Carbon Dioxide 25 Anion Gap 15 BUN 11 Creatinine 0.7 Estimated GFR/1.73 m2 > 60 BUN/Creatinine Ratio 16 Glucose 94 Calculated Osmolality 279 Calcium 9.8 Total Bilirubin 0.31 AST 15 ALT 10 Alkaline Phosphatase 95 Creatine Kinase 20 L Troponin T Total Protein 7.9 Albumin 4.5 Globulin 3.4 Albumin/Globulin Ratio 1.3 Plasma Lactate Urine Source Urine Color Urine Turbidity Urine pH Ur Specific [place] Urine Protein Ur Glucose (Stick) Ur Ketones (Stick) Urine Blood Urine Nitrite Urine Bilirubin Urobilinogen Dipstick Urine Leukocytes Urine WBC (Auto) Urine RBC (Auto) U Epithel Cells (Auto) Urine Bacteria (Auto) 09/11/19 09/11/19 09/11/19 09:20 09:20 09:41 WBC RBC Hgb Hct MCV MCH MCHC RDW Std Deviation Plt Count MPV Immature Gran % (Auto) Neut % (Auto) Lymph % (Auto) [place] % (Auto) Eos % (Auto) Baso % (Auto) Immature Gran # (Auto) Neut # (Auto) Lymph # (Auto) [place] # (Auto) Eos # (Auto) Baso # (Auto) PT INR PTT (Actin FS) Sodium Potassium Chloride Carbon Dioxide Anion Gap BUN Creatinine Estimated GFR/1.73 m2 BUN/Creatinine Ratio Glucose Calculated Osmolality Calcium Total Bilirubin AST ALT Alkaline Phosphatase Creatine Kinase Troponin T < 0.010 Total Protein Albumin Globulin Albumin/Globulin Ratio Plasma Lactate 1.8 Urine Source CATH Urine Color YELLOW Urine Turbidity HAZY Urine pH 7.5 Ur Specific [place] 1.019 Urine Protein 50 A Ur Glucose (Stick) NEGATIVE Ur Ketones (Stick) NEGATIVE Urine Blood MODERATE A Urine Nitrite NEGATIVE Urine Bilirubin NEGATIVE Urobilinogen Dipstick 3 A Urine Leukocytes MODERATE A Urine WBC (Auto) TNTC A Urine RBC (Auto) TNTC A U Epithel Cells (Auto) <10 Urine Bacteria (Auto) 2+ 09/11/19 12:32 WBC RBC Hgb Hct MCV MCH MCHC RDW Std Deviation Plt Count MPV Immature Gran % (Auto) Neut % (Auto) Lymph % (Auto) [place] % (Auto) Eos % (Auto) Baso % (Auto) Immature Gran # (Auto) Neut # (Auto) Lymph # (Auto) [place] # (Auto) Eos # (Auto) Baso # (Auto) PT INR PTT (Actin FS) Sodium Potassium Chloride Carbon Dioxide Anion Gap BUN Creatinine Estimated GFR/1.73 m2 BUN/Creatinine Ratio Glucose Calculated Osmolality Calcium Total Bilirubin AST ALT Alkaline Phosphatase Creatine Kinase Troponin T Total Protein Albumin Globulin Albumin/Globulin Ratio Plasma Lactate 1.6 Urine Source Urine Color Urine Turbidity Urine pH Ur Specific [place] Urine Protein Ur Glucose (Stick) Ur Ketones (Stick) Urine Blood Urine Nitrite Urine Bilirubin Urobilinogen Dipstick Urine Leukocytes Urine WBC (Auto) Urine RBC (Auto) U Epithel Cells (Auto) Urine Bacteria (Auto) Orders Category Date Time Status Cardiac Monitoring DIRECTED Care 09/11/19 09:04 Active ED: Orthostatic Vital Signs (E DIRECTED Care 09/11/19 09:15 Active IV Insertion ORDERED Care 09/11/19 09:04 Completed Notify MD of + Sepsis Screen NOW Care 09/11/19 09:04 Active Notify Physician As Ordered Care 09/11/19 09:04 Active Nursing- Obtain EKG ONCE Care 09/11/19 09:26 Active Straight Catheterization ORDERED Care 09/11/19 09:35 Active CHEST-1 VIEW [RAD] Stat Exams 09/11/19 09:[address] ABD/PELVIS W/IV CONT ONLY [CT] Stat Exams 09/11/19 09:53 Completed BLOOD CULTURE [BLDCUL] Stat Lab 09/11/19 09:22 Results CBC WITH DIFF [HEME] Stat Lab 09/11/19 09:20 Completed CK PROFILE [SP CHEM] Stat Lab 09/11/19 09:20 Completed COMPREHENSIVE METABOLIC PANEL [CHEM] Stat Lab 09/11/19 09:20 Completed LACTATE, PLASMA [CHEM] Lab 09/11/19 12:32 Completed LACTATE, PLASMA [CHEM] Lab 09/11/19 15:15 Uncollected LACTATE, PLASMA [CHEM] Q3H Lab 09/11/19 09:20 Completed PROTIME WITH INR [COAG] Stat Lab 09/11/19 09:20 Completed PTT [COAG] Stat Lab 09/11/19 09:20 Completed TROPONIN T Stat Lab 09/11/19 09:20 Completed URINALYSIS W/POSS RFLX CULT [URINALYSIS] Stat Lab 09/11/19 09:41 Completed URINE CULTURE [RM] Routine Lab 09/11/19 10:34 Received 0.9% Sodium Chloride Inj [Ns] 1,000 ml Med 09/11/19 09:34 Discontinued IV 999 mls/hr CefTRIAXONE [Rocephin] 1 gm Med 09/11/19 09:53 Discontinued 0.9% Sodium Chloride Inj [Ns] 50 ml IV NOW Morphine Med 09/11/19 09:18 Discontinued 4 mg IV NOW ONE Morphine Med 09/11/19 12:44 Discontinued 4 mg IV NOW ONE Oxygen Device Stat Oth 09/11/19 09:04 Active EKG [EKG] Stat Ther 11/25/19 09:26 Draft Lab results, imaging results, plan of care, and need for inpatient admission discussed with patient who agrees with and verbalizes understanding. Result Diagrams: 09/11/19 09:20 09/11/19 09:20 - REASSESSMENT Reassessment #1 Time Reassessed: 11:53 (CT not performed yet; ordered 2 hrs ago. Will send for patient per CT) Reassessment #2 Time Reassessed: 12:35 Reassessment Comment: Hospitalist paged for admission - XRAY 1 XRAY: Bilateral XRAY Study: Chest Impression: See EMR Report ([facility] - [address] , [address], [place] [address] [facility] - [address] [place] [address] Department of Imaging Patient: ANA COON Date: 09/11/19MR#: [id number] : 1980ADM Status: PRE ERAcct#: [id number] Age/Sex: 39/FRoom/Bed: Loc: ED Ordering Physician: Fabian Brooks MD Family Physician: None,PCP Reason for Procedure: sepsis protocol ___ Signed EXAM: CHEST-1 VIEW 09/11/2019 HISTORY: sepsis protocol TECHNIQUE: PA chest COMMENT: There is no evidence of acute cardiac or pulmonary disease. Compared to 03/11/2019 there has been no significant change. IMPRESSION: No acute disease. Electronically signed by Dakotah Wade 09/11/2019 9:34 AM 09/11/19933 Interpreting Physician: Dakotah Wade MD Dictated Date/Time: 09/11/19933 cc: Fabian Brooks MD; None,PCP) - CT/MRI 1 CT Study: Abdomen, Pelvis Impression: See EMR Report ([facility] - [address], [address], [place] [address] [facility] - [address] , [place] [address] Department of Imaging Patient: ANA COON Date: 09/11/19#: [id number] : 1980ADM Status: REG [facility]#: [id number] Age/Sex: 39/FRoom/Bed: Loc: ED Ordering Physician: Dasha Atwood Family Physician: None,PCP Reason for Procedure: Flank pain; n/v; fever; hx pyelo Signed CT ABD/PELVIS W/IV CONT ONLY - 09/11/2019 INDICATION: Flank pain; n/v; fever; hx pyelo COMPARISON: 03/11/2019 FINDINGS: There is some mild infiltrate in the right lower lobe. Heart size is normal with no pericardial effusion. There is heterogeneous hypoenhancement of the right kidney. This is similar to the prior CT and even is somewhat more extensive now. There is also clearly enhancement of the urothelium of the right renal pelvis. This indicates pyelonephritis. No renal stones or definite obstruction. Other abdominal organs are all normal. There is mild constipation. Uterus is absent. Urinary bladder and rectum are normal. There are a couple of healing posterior right rib fractures, ribs #10 and 11. There is a lot of callus and nearly complete bony bridging, these are probably at least 2-4 weeks old. No acute bony lesions. IMPRESSION: 1. Severe right-sided pyelonephritis. 2. Mild constipation. 3. Healing right-sided rib fractures. This exam was performed using automated exposure control, adjustment of mA or kV according to patient size, and/or use of iterative reconstruction technique Electronically signed by Niko Thomas 09/11/2019 12:22 PM 09/11/19 1222 Interpreting Physician: Yalowitz,Niko A. MD Dictated Date/Time: 09/11/19 1218 cc: Dasha Zhou; None,PCP) - CONSULTS/PCP/HOSPITALIST Notification #1 *Consult/PCP/Hospitalist*: Oswaldo Swensonist RADHA Time Discussed: 13:58 Reason/Comments: Severe R pyelo; sepsis Consult Disposition: Will see in ED, Admit Departure - Departure Date of Disposition Decision: 09/11/19 Time of Disposition Decision: 13:58 DIAGNOSIS: Pyelonephritis of right kidney Sepsis Qualifiers: Sepsis type: sepsis due to unspecified organism Sepsis acute organ dysfunction status: unspecified Qualified Code(s): A41.9 - Sepsis, unspecified organism UTI (urinary tract infection) Qualifiers: Urinary tract infection type: acute cystitis Hematuria presence: with hematuria Qualified Code(s): N30.01 - Acute cystitis with hematuria Leukocytosis Qualifiers: Leukocytosis type: unspecified Qualified Code(s): D72.829 - Elevated white blood cell count, unspecified Disposition: ADMITTED INPATIENT 09 Certified Medical Emergency: Emergent Condition: Stable Referrals and Follow-Ups: None,PCP [Primary Care Provider] - - Critical Care Note This patient required my direct & personal management of CC.: No Attestation - Physician/ VIVIANA Attestation Patient care was provided by Advanced Practice Provider:: Yes Advanced Practice Provider:: Dasha Zhou Advanced Practice Provider documentation review:: The Mid-level provider documentation, treatment plan and medical decision making was reviewed by the physician who agrees with all treatment and medical decision making by the P. The physician spent face to face time with patient:: No Advanced Practice Provider documentation review:: Supervising physician onsite and consulted in the evaluation and care of this patient. The physician did not have a face to face encounter with the patient.
[2019-09-11] MEDS ORDERED: NS 1,000 ML IV ONE (09:34)
--- NOTE | 2019-09-11 09:37 | Diag Imaging Result Doc PS360 ---
EXAM: CHEST-1 VIEW 09/11/2019 HISTORY: sepsis protocol TECHNIQUE: PA chest COMMENT: There is no evidence of acute cardiac or pulmonary disease. Compared to 03/11/2019 there has been no significant change. IMPRESSION: No acute disease. Electronically signed by Dakotah Wade 09/11/2019 9:34 AM
[2019-09-11 09:47] LABS: URINE SOURCE CATH
[2019-09-11 09:50] LABS: BILIRUBIN URINE NEGATIVE (NEGATIVE); BLOOD URINE MODERATE (NEGATIVE); COLOR YELLOW; GLUCOSE URINE NEGATIVE (NEGATIVE); KETONE URINE NEGATIVE (NEGATIVE); LEUKOCYTES URINE MODERATE (NEGATIVE); NITRITE URINE NEGATIVE (NEGATIVE); PH URINE 7.5; PROTEIN URINE 50 mg/dL (NEGATIVE); SP GRAVITY URINE 1.019; TURBIDITY URINE HAZY (CLEAR); UROBILINOGEN URINE 3 mg/dL (NORMAL)
[2019-09-11 09:51] LABS: BASO# 0.06 X1000 (0.0-0.2); BASO% 0.3 % (0.0-0.8); EOS# 0.06 X1000 (0.0-0.7); EOS% 0.3 % (0.0-10.0); HEMATOCRIT 43.9 % (37.0-47.0); HEMOGLOBIN 14.4 g/dL (12.0-16.0); IMM GRAN# 0.05 X1000 (0.0-0.04); IMM GRAN% 0.3 % (0.0-0.5); LYMPH# 1.66 X1000 (1.2-3.4); LYMPH% 9.2 % (20.5-51.1); MCH 29.6 PG (27-31); MCHC 32.8 g/dL (33-37); MCV 90.1 FL (81-99); MONO# 1.86 X1000 (0.11-0.59); MONO% 10.3 % (1.7-9.3); MPV 9.7 FL (7.4-10.4); NEUT# 14.33 X1000 (1.4-6.5); NEUT% 79.6 % (42.2-75.2); PLT 417 X1000 (130-400); RBC 4.87 XMIL (4.2-5.4); RDW 13.9 % (11.5-14.5); WBC 18.02 X1000 (4.8-10.8)
[2019-09-11 09:52] LABS: UR EPITHELIAL CELLS <10 /HPF (<10); URINE BACTERIA 2+ /HPF; URINE RBC TNTC /HPF (<10); URINE WBC TNTC /HPF (<10)
[2019-09-11] MEDS ORDERED: ROCEPHIN 1 GM in NS 50 ML IV ONE (09:53)
--- NOTE | 2019-09-11 09:57 | EKG Report ---
Test Performed on : 09/11/2019 09:55:07 AM Test Reason : Sepsis workup Blood Pressure : / mmHG Vent. Rate : 087 BPM Atrial Rate : 087 BPM P-R Int : 136 ms QRS Dur : 076 ms QT Int : 358 ms P-R-T Axes : 060 039 049 degrees QTc Int : 430 ms Normal sinus rhythm. Normal ECG When compared with ECG of 11-MAR-2019 18:18, No significant change was found Unconfirmed Result
[2019-09-11 10:18] LABS: INR 0.96; PROTIME 12.8 Seconds (11.0-16.0)
[2019-09-11 10:19] LABS: PTT 31.5 Seconds (22.3-41.8)
[2019-09-11 10:41] LABS: AGAP 15; ALB/GLOB RATIO 1.3; ALBUMIN 4.5 g/dL (3.5-5.0); ALKALINE PHOSPHATASE 95 U/L (32-104); BUN 11 mg/dL (8-22); CALCIUM 9.8 mg/dL (8.8-10.2); CHLORIDE 100 mmol/L (98-107); CK PROFILE 20 U/L (24-173); COSMO 279; CREATININE 0.7 mg/dL (0.5-0.9); ESTIMATED GFR > 60; GLUCOSE 94 mg/dL (70-104); GOT 15 U/L (10-30); GPT 10 U/L (10-36); POTASSIUM 4.3 mmol/L (3.5-5.1); SODIUM 140 mmol/L (136-145); TCO2 25 mmol/L (25-35); TOTAL BILIRUBIN 0.31 mg/dL (0.20-1.00); TOTAL PROTEIN 7.9 g/dL (6.3-8.3)
--- NOTE | 2019-09-11 12:25 | Diag Imaging Result Doc PS360 ---
CT ABD/PELVIS W/IV CONT ONLY - 09/11/2019 INDICATION: Flank pain; n/v; fever; hx pyelo COMPARISON: 03/11/2019 FINDINGS: There is some mild infiltrate in the right lower lobe. Heart size is normal with no pericardial effusion. There is heterogeneous hypoenhancement of the right kidney. This is similar to the prior CT and even is somewhat more extensive now. There is also clearly enhancement of the urothelium of the right renal pelvis. This indicates pyelonephritis. No renal stones or definite obstruction. Other abdominal organs are all normal. There is mild constipation. Uterus is absent. Urinary bladder and rectum are normal. There are a couple of healing posterior right rib fractures, ribs #10 and 11. There is a lot of callus and nearly complete bony bridging, these are probably at least 2-4 weeks old. No acute bony lesions. IMPRESSION: 1. Severe right-sided pyelonephritis. 2. Mild constipation. 3. Healing right-sided rib fractures. This exam was performed using automated exposure control, adjustment of mA or kV according to patient size, and/or use of iterative reconstruction technique Electronically signed by Niko Thomas 09/11/2019 12:22 PM
--- NOTE | 2019-09-11 12:30 | ED EKG INTERP ---
This chart was entered by Karishma Carrillo Scribe, acting as scribe for Fabian Brooks MD. EKG Interpretation - EKG Time of EKG reading by physician:: 09:55 EKG Read and Signed by:: Fabian Brooks EKG Interpretation (*Must complete 3 of following elements*): Normal Rate: 87 Rhythm: normal sinus rhythm [place]: normal QRS: normal TX Interval: normal ST Wave: normal Comments: normal ECG Attestation - Physician/ VIVIANA Attestation Patient care was provided by Advanced Practice Provider:: Yes Advanced Practice Provider:: Dasha Zhou Advanced Practice Provider documentation review:: The Mid-level provider documentation, treatment plan and medical decision making was reviewed by the physician who agrees with all treatment and medical decision making by the MLP. The physician spent face to face time with patient:: No Advanced Practice Provider documentation review:: Supervising physician onsite and consulted in the evaluation and care of this patient. The physician did not have a face to face encounter with the patient. This chart was documented by the indicated scribe, (Karishma Carrillo Scribe) and accurately reflects the services I performed and decisions made by me, Fabian Brooks MD, as attested by the provider's signature.
[2019-09-11] MEDS ORDERED: ZOFRAN IV PRN (14:18)
[2019-09-11] MEDS: TYLENOL PO PRN ×2 (14:59→23:40)
[2019-09-11] MEDS: NS 1,000 ML IV SCH ×2 (15:35→15:39)
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
[2019-09-11] MEDS: MORPHINE IV PRN ×3 (16:09→23:37)
[2019-09-11] MEDS: LEVAQUIN 500 MG/D5W 500 MG/100 ML IVPB IV SCH (16:17)
[2019-09-11] MEDS ORDERED: NICODERM PATCH TD PRN (16:38)
--- NOTE | 2019-09-11 17:47 | HISTORY AND PHYSICAL ---
This is just a summary. See full details done by RADHA Hinkle. This is a 39-year-old female with a history of E. coli urinary tract infection. She had kidney stones. She does have a history of narcotic abuse in the past. But she came in with fever, stomach and back pain, nausea and vomiting. States the pain has been persistent for 5 days and had increased during the night before this admission. Took Motrin. Presented to the emergency room. States that she passed a kidney stone about 3 days ago and seemed to have some flank pain and abdominal pain, decreased somewhat after passing the stone. Denied any black or bloody vomitus or diarrhea or chest pain, palpitations, cough, shortness of breath. PAST MEDICAL HISTORY: 1. Recent urinary tract infection. 2. Kidney stones. 3. Narcotic abuse. On exam she had some right costovertebral angle tenderness so admitted with right pyelonephritis, recent passage of kidney stone on the right side, urinary tract infection, leukocytosis, possible early sepsis with pyelonephritis. We gave her quite a bit of fluids. She has a history of E. coli, extended spectrum beta lactamase. It was negative for extended spectrum beta lactamase producing organism. So she had been put on Augmentin and Bactrim. So we have put her on Levaquin 500 mg IV daily. I will let her have some morphine for the pain and we will give her liberal fluids, getting 100 mL an hour. I do not see any true sepsis. I think she had some systemic inflammatory response signs, but her blood pressure is well maintained and I do not see any organ dysfunction. cc: Inocente Hoffman MD
[2019-09-12] MEDS: NS 1,000 ML IV SCH ×2 (02:39→09:30)
[2019-09-12] MEDS: MORPHINE IV PRN ×5 (05:23→19:25)
[2019-09-12] MEDS: PRILOSEC PO SCH ×2 (05:23→07:11)
[2019-09-12 07:15] LABS: BASO# 0.04 X1000 (0.0-0.2); BASO% 0.3 % (0.0-0.8); EOS# 0.07 X1000 (0.0-0.7); EOS% 0.6 % (0.0-10.0); HEMATOCRIT 37.4 % (37.0-47.0); IMM GRAN# 0.05 X1000 (0.0-0.04); IMM GRAN% 0.4 % (0.0-0.5); LYMPH# 1.74 X1000 (1.2-3.4); LYMPH% 13.7 % (20.5-51.1); MCH 29.1 PG (27-31); MCHC 32.1 g/dL (33-37); MCV 90.8 FL (81-99); MONO# 1.66 X1000 (0.11-0.59); MONO% 13.1 % (1.7-9.3); MPV 9.8 FL (7.4-10.4); NEUT% 71.9 % (42.2-75.2); PLT 316 X1000 (130-400); RBC 4.12 XMIL (4.2-5.4); RDW 13.4 % (11.5-14.5); WBC 12.66 X1000 (4.8-10.8)
[2019-09-12 07:42] LABS: AGAP 12; BUN 8 mg/dL (8-22); CALCIUM 8.7 mg/dL (8.8-10.2); CHLORIDE 104 mmol/L (98-107); COSMO 273; CREATININE 0.5 mg/dL (0.5-0.9); ESTIMATED GFR > 60; GLUCOSE 87 mg/dL (70-104); POTASSIUM 3.5 mmol/L (3.5-5.1); SODIUM 138 mmol/L (136-145); TCO2 22 mmol/L (25-35)
--- NOTE | 2019-09-12 15:36 | PROGRESS NOTE ---
DATE: 09/12/2019 SUBJECTIVE: The patient seems to be feeling a little bit better today compared with yesterday. She had fever during the night, but no fever documented today. She is still complaining of right flank pain, but compared with yesterday she seems to be better. White blood cell count is trending down and urine culture showed gram-negative rods. She has been placed on levofloxacin which I will continue. OBJECTIVE: Vital Signs: Temperature 98.6 degrees, pulse 74, respiratory rate 20, blood pressure 110/76, oxygen saturation 97% on room air. HEENT: Head normocephalic, no trauma PERRLA. Neck: Supple. No JVD. No masses. Central trachea. Chest: Clear to auscultation. No wheezing. No rales. Abdomen: Soft. Tenderness to palpation at the level of the right flank and positive CVA tenderness. Extremities: No edema no clubbing no cyanosis. Neurological: The patient is alert. She is oriented x3. No focal deficits. LABORATORY: WBC 12.6, hemoglobin 12, hematocrit 37.4, platelet 316,000. Sodium 138, potassium 3.5, chloride 104, bicarbonate 22, BUN 8, creatinine 0.5 glucose 87, calcium 8.7. ASSESSMENT AND PLAN: 1. Right pyelonephritis, as per the patient she has a history of kidney stones but no kidney stone has been identified during this hospitalization. She does have a in images that showed pyelonephritis, though. Also, she is having fever, leukocytosis. We started this patient on levofloxacin and IV fluids, and she seems to be getting better. White blood cell count trending down. This patient is septic. 2. Sepsis due to pyelonephritis, as above. 3. History of extended spectrum Beta lactamase negative urinary tract infection in the past, resistant to ampicillin, Augmentin and Bactrim. 4. History of kidney stones, aware. 5. Possible narcotic abuse. This patient has been advised against narcotic use. I will continue with daily cessation education. cc: Patel Schmitz MD
[2019-09-12] MEDS: LEVAQUIN 500 MG/D5W 500 MG/100 ML IVPB IV SCH (19:17)
[2019-09-13] MEDS: MORPHINE IV PRN ×7 (00:09→21:49)
[2019-09-13] MEDS: NS 1,000 ML IV SCH ×3 (00:10→19:40)
[2019-09-13] MEDS: PRILOSEC PO SCH (06:41)
[2019-09-13 07:24] LABS: BASO# 0.04 X1000 (0.0-0.2); BASO% 0.4 % (0.0-0.8); EOS% 2.1 % (0.0-10.0); HEMATOCRIT 35.2 % (37.0-47.0); HEMOGLOBIN 11.5 g/dL (12.0-16.0); IMM GRAN# 0.02 X1000 (0.0-0.04); IMM GRAN% 0.2 % (0.0-0.5); LYMPH# 2.01 X1000 (1.2-3.4); LYMPH% 21.3 % (20.5-51.1); MCH 29.3 PG (27-31); MCHC 32.7 g/dL (33-37); MCV 89.6 FL (81-99); MONO# 0.95 X1000 (0.11-0.59); MONO% 10.1 % (1.7-9.3); MPV 9.7 FL (7.4-10.4); NEUT# 6.23 X1000 (1.4-6.5); NEUT% 65.9 % (42.2-75.2); PLT 338 X1000 (130-400); RBC 3.93 XMIL (4.2-5.4); RDW 13.2 % (11.5-14.5); WBC 9.45 X1000 (4.8-10.8)
[2019-09-13 07:42] LABS: AGAP 12; BUN 7 mg/dL (8-22); CALCIUM 8.9 mg/dL (8.8-10.2); CHLORIDE 106 mmol/L (98-107); COSMO 277; CREATININE 0.5 mg/dL (0.5-0.9); ESTIMATED GFR > 60; GLUCOSE 94 mg/dL (70-104); POTASSIUM 3.3 mmol/L (3.5-5.1); SODIUM 140 mmol/L (136-145); TCO2 22 mmol/L (25-35)
[2019-09-13] MEDS ORDERED: KLOR-CON PO ONE (10:46)
[2019-09-13] MEDS: ROCEPHIN 1 GM in NS 50 ML IV SCH (11:48)
--- NOTE | 2019-09-13 19:08 | PROGRESS NOTE ---
DATE: 09/13/2019 SUBJECTIVE: This patient is still complaining of back pain, we placed this patient on fluids and antibiotics with levofloxacin. Unfortunately, we have a positive culture with E coli that is resistant to that medication and I have stopped the vancomycin and I put this patient on ceftriaxone which is sensitive. OBJECTIVE: Vital Signs: Temperature 98 degrees, pulse 76, respiratory rate 16, blood pressure 144/67, oxygen saturation 95% on room air. HEENT: Head normocephalic, no trauma. PERRLA. Neck: Supple. No JVD. No masses. Central trachea. Chest: Clear to auscultation. No wheezing. No rales. Abdomen: Soft. Tenderness to palpation at the level of the right flank with positive CVA tenderness. Extremities: No edema, no clubbing, no cyanosis. Neurological: The patient is alert. She is oriented x3. No focal deficits. LABORATORY: WBC 9.4, hemoglobin 11.5, hematocrit 35.2, platelet 338,000. Sodium 140, potassium 3.3, chloride 106, bicarbonate 22, BUN 7, creatinine 0.5, glucose 94, calcium 8.9. ASSESSMENT AND PLAN: 1. Right pyelonephritis. As per the patient, she has a history of kidney stones but no kidney stone has been identified during this hospitalization. She does have an image that showed pyelonephritis, though. Also, she presented with fever, leukocytosis. We started this patient on IV fluid and levofloxacin. Unfortunately, we received a blood culture that showed Escherichia coli that is resistant to levofloxacin and I have switched the treatment to ceftriaxone. 2. Sepsis due to pyelonephritis as above. 3. History of a previous urinary tract infection, resistant to ampicillin, Augmentin and Bactrim. 4. History of kidney stones. Aware. 5. Possible narcotic abuse. This patient has been highly advised against narcotic use. I will continue with daily cessation education. cc: Patel Schmitz MD
[2019-09-14] MEDS: MORPHINE IV PRN ×3 (04:27→10:18)
[2019-09-14] MEDS: PRILOSEC PO SCH ×2 (04:36→06:21)
[2019-09-14 06:28] LABS: AGAP 11; BUN 8 mg/dL (8-22); CALCIUM 8.8 mg/dL (8.8-10.2); CHLORIDE 108 mmol/L (98-107); COSMO 277; CREATININE 0.5 mg/dL (0.5-0.9); ESTIMATED GFR > 60; GLUCOSE 91 mg/dL (70-104); POTASSIUM 3.6 mmol/L (3.5-5.1); SODIUM 140 mmol/L (136-145); TCO2 21 mmol/L (25-35)
[2019-09-14] MEDS: NS 1,000 ML IV SCH (07:40)
[2019-09-14] MEDS: ROCEPHIN 1 GM in NS 50 ML IV SCH (10:21)
--- NOTE | 2019-09-14 11:07 | PROGRESS NOTE ---
DATE: 09/14/2019 SUBJECTIVE: This patient seems to be feeling a little bit better today. Apparently, she had a lot of pain during the night though. I have switched the antibiotics from levofloxacin to ceftriaxone because her culture showed Escherichia coli that is resistant to this treatment. I will give her an extra day of antibiotics, and I will send her home in the morning. OBJECTIVE: Vital Signs: Temperature 98.6 degrees, pulse 55, respiratory rate 18, blood pressure 111/74, oxygen saturation 98 on room air. HEENT: Head normocephalic. No trauma. PERRLA. Neck: Supple. No JVD. No masses. Central trachea. Chest: Clear to auscultation. No wheezing. No rales. Abdomen: Soft. Tenderness to palpation at the level of the right flank with positive CVA tenderness. Extremities: No edema, no clubbing, no cyanosis. Neurological: The patient is alert. She is oriented x3. No focal deficits. LABORATORY DATA: Sodium 140, potassium 3.6, chloride 108, bicarbonate 21, BUN 8, creatinine 0.5, glucose 91, calcium 8.8. ASSESSMENT AND PLAN: 1. Right pyelonephritis. It looks like this patient has a history of kidney stones. We did a CT scan here that shows severe right-sided pyelonephritis, but no renal stones or obstruction. We have a culture that showed Escherichia coli that is sensitive to ceftriaxone, but not to levofloxacin. She used to be on levofloxacin, which has been stopped yesterday, and I started this patient on ceftriaxone. 2. Sepsis due to pyelonephritis. As above. 3. History of previous urinary tract infection. Aware. 4. History of kidney stone. Aware. cc: Patel Schmitz MD
[2019-09-14 12:03] VITALS: BP 115/67
--- NOTE | 2019-09-14 14:36 | DISCHARGE SUMMARY ---
ADMISSION DATE: 09/11/2019 DISCHARGE DATE: 09/14/2019 DISCHARGE DIAGNOSES: 1. Right pyelonephritis. 2. Sepsis due to pyelonephritis. 3. History of previous urinary tract infection. 4. History of kidney stones. PROCEDURES PERFORMED: Chest x-ray dated 09/11/2019. Impression: No acute disease. Abdomen and pelvis CT scan dated 09/11/2019. Impression: Severe right-sided pyelonephritis, mild constipation, healing right-sided rib fractures. HOSPITAL COURSE: This is a 39-year-old, female with a past medical history of E. coli UTI, kidney stone, and possible narcotic abuse, presented to the emergency department complaining of abdominal pain, right flank, as well as nausea and vomiting. She has been having this pain for 5 days. She took Motrin and presented to the emergency room, and was admitted on 09/11/2019. Apparently, she passed a kidney stone 3 days before admission and she has had her flank pain and abdominal pain decrease somewhat after passing the stone. She denied any black or bloody vomitus or stools. No diarrhea. No chest pain. No palpitations, cough, shortness of breath. She was admitted and placed on levofloxacin and IV fluids, also pain medication. We asked for a blood culture, which is negative, and also a urine culture that showed Escherichia coli that actually was resistant to levofloxacin so we switched the antibiotics from levofloxacin to ceftriaxone. Today, even though this patient was in pain during the night, she is feeling better and she would like to go home today. Since she is going to receive the second dose of ceftriaxone today, I believe she is good to be discharged since her white blood cell count is normal, her vital signs are stable, and no fever since the day of the admission, on the . Also, she has a low-grade fever of 100.7 on 09/12/2019 at 7:29 p.m. She seems to be stable. Again, she would like to go home. PHYSICAL EXAMINATION: Vital Signs: Temperature 98.5 degrees, pulse 62, respiratory rate 16, blood pressure 115/67, oxygen saturation 100% on room air. HEENT: Head normocephalic. No trauma. PERRLA. Neck: Supple. No JVD. No masses. Central trachea. Chest: Clear to auscultation. No wheezing. No rales. Abdomen: Soft. Some tenderness to palpation at the level of the right flank and some CVA tenderness but better compared with the previous days. Extremities: No edema, no clubbing, no cyanosis. Neurological Examination: The patient is awake, alert, and oriented x3. No focal deficits. LABORATORY: Sodium 140, potassium 3.6, chloride 108, bicarbonate 21, BUN 8, creatinine 0.5, glucose 91, calcium 8.8. DISCHARGE MEDICATIONS: 1. Acetaminophen 650 mg p.o. q.6 hours as needed for pain/fever. 2. Bentyl 10 mg p.o. t.i.d. as needed. 3. Abreva cream 2 g 5 times a day. 4. [place] 7.5 one tablet p.o. q.6 hours as needed for pain. 5. MiraLAX 17 g p.o. daily. 6. Bactrim DS tablet 1 tablet p.o. b.i.d. to complete 14 days of treatment. The patient seems to be stable. She is not having fever. White blood cell count normalized. She is completely awake, alert, and oriented x3. She would like to go home today and I think it is going to be okay as long as she takes her medications. She already received her dose of ceftriaxone today. She will be discharged to complete 14 days of treatment since she has pyelonephritis. She has been discharged with Bactrim twice a day. cc: Patel Schmitz MD
== END 2019-09-14 13:32 | disposition home or self-care (01) ==
LOC: ED 08:56 → 4N 14:43 → SUATTDRO 14:43
PROVIDERS: ATTEND Internal Medicine